=== PATIENT | female | born 1985 | race American Indian/Alaskan Native ===

== ENCOUNTER 2021-11-04 17:20 | Emergency (ER) | payer OTHER, BC ==
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
[2021-11-04] MEDS ORDERED: HYDROcodone/ACETAMINOPHEN 5-325 MG TAB PO ONE (18:45)
[2021-11-04 18:58] VITALS: BP 132/78
== END 2021-11-04 18:57 | disposition home or self-care (01) ==
LOC: ED 17:20
DX: M25.559 Pain in unspecified hip (principal); M54.50 Low back pain, unspecified; M25.561 Pain in right knee; V89.2XXA Person injured in unspecified motor-vehicle accident, traffic, initial encounter; Y93.89 Activity, other specified; Y92.89 Other specified places as the place of occurrence of the external cause; Y99.8 Other external cause status
CPT/HCPCS: 99282